=== PATIENT | female | born 1990 | race Caucasian/White ===

== ENCOUNTER 2017-02-07 11:45 | Emergency (ER) | payer OTHER ==
[2017-02-07 11:53] VITALS: BP 111/76; PULSE 65; TEMP 98.1; BMI 20.4
--- NOTE | 2017-02-07 12:43 | PDOC ---
History of Present Illness - General Chief Complaint: Bleeding from Anus Stated Complaint: URINARY RETENTION Time Seen by Provider: 02/07/17 12:05 History Source: Patient Exam Limitations: No Limitations - History of Present Illness Initial Comments: 02/07/17 12:37 27-year-old female with history of hemorrhoids including removal of hemorrhoids in 2008 here at [facility] presents with recurrence of hemorrhoids causing her to have rectal bleeding upon defecation and constipation. Patient denies abdominal pain, fever, chills, dizziness, weakness, history of anemia, continual rectal bleeding, nausea, or difficulty urinating. Timing/Duration: constant, getting worse Severity: mild Associated Symptoms: reports: denies symptoms Past History - Past Medical History Allergies/Adverse Reactions: Allergies Allergy/AdvReac Type Severity Reaction Status Date / Time No Known Allergies Allergy Verified 02/07/17 11:50 Home Medications: Ambulatory Orders NK [No Known Home Medication] 02/07/17 GI Disorders: Yes (HEMORRHOIDS.) Other medical history: denies. - Reproductive History LMP Normal: Yes Is Patient Now?: No - Psycho/Social/Smoking Cessation Hx Anxiety: No Suicidal Ideation: No Smoking History: Never smoked Hx Alcohol Use: No Drug/Substance Use Hx: No Substance Use Type: None Patient Lives Alone: No Review of Systems - Review of Systems Able to Perform ROS?: Yes Constitutional: No: Symptoms Reported HEENTM: No: Symptoms Reported Respiratory: No: Symptoms reported Cardiac (ROS): No: Symptoms Reported ABD/GI: Yes: Constipated, Rectal Bleeding. No: Blood Streaked Bowels : No: Symptoms Reported Musculoskeletal: No: Symptoms Reported Integumentary: No: Symptoms Reported Neurological: No: Symptoms reported Hematologic/Lymphatic: No: Symptoms Reported *Physical Exam - Vital Signs Last Vital Signs Temp Pulse Resp BP Pulse Ox 98.1 F 65 18 111/76 100 02/07/17 11:49 02/07/17 11:49 02/07/17 11:49 02/07/17 11:49 02/07/17 11:49 - Physical Exam General Appearance: Yes: Nourished, Appropriately Dressed. No: Apparent Distress HEENT: negative: Pale Conjunctivae Cardiovascular: positive: Regular Rate. negative: Tachycardia Gastrointestinal/Abdominal: positive: Soft. negative: Tenderness Rectal Exam: positive: normal rectal tone, hemorrhoids (nonthrombosed external at 3:00. ), other (palpable semi-firm tender mass to the distal aspect of rectal vault). negative: decreased tone Integumentary: positive: Normal Color, Warm, Moist Neurologic: positive: Motor Strength 5/5 (ambulatory) Medical Decision Making - Medical Decision Making 02/07/17 12:44 Patient with constipation, hemorrhoids, and rectal bleeding upon defecation. Patient with history of hemorrhoidectomy and 2009 and unable to recall the physician requesting a new surgical referral. Patient on exam had 1 small 1 cm nonthrombosed hemorrhoid at 3:00 and a small semi-firm tender mass to the distal aspect of rectal vault. Likely a hemorrhoid. Patient will be ordered for Dulcolax to soften the stool, suppository, and topical. Patient also be given a surgical referral *DC/Admit/Observation/Transfer Diagnosis at time of Disposition: Hemorrhoids Qualifiers: Hemorrhoid type: first degree Qualified Code(s): K64.0 - First degree hemorrhoids - Discharge Dispostion Disposition: HOME Condition at time of disposition: Good - Referrals Referrals: Fernandez Veloz MD [Staff Physician] - - Patient Instructions Printed Discharge Instructions: DI for Hemorrhoids Additional Instructions: Please use topical, suppository, and laxative as prescribed. Please also follow up with referred surgeon.
== END 2017-02-07 12:54 | disposition home or self-care (01) ==
LOC: JERFT 11:45
DX: K64.0 First degree hemorrhoids (principal)
CPT/HCPCS: 99281-25

== ENCOUNTER 2021-03-20 14:40 | Emergency (ER) | payer OTHER ==
[2021-03-20 15:14] VITALS: BP 119/77; PULSE 71; TEMP 97.9; BMI 19.3
[2021-03-20] MEDS ORDERED: ACETAMINOPHEN 500 MG TABLET (FP) PO ONE (15:36)
[2021-03-20] MEDS ORDERED: KETOROLAC TROMETHAMINE 30 MG/1 ML VIAL IM ONE (15:36)
[2021-03-20] MEDS ORDERED: ACETAMINOPHEN 500 MG TABLET (FP) ONE (15:37)
[2021-03-20] MEDS ORDERED: KETOROLAC TROMETHAMINE 30 MG/1 ML VIAL ONE (15:37)
== END 2021-03-20 16:05 | disposition home or self-care (01) ==
LOC: JERFT 14:40
PROC: 3E0233Z Introduction of Anti-inflammatory into Muscle, Percutaneous Approach (ICD-10-PCS; principal; 2021-03-20)
DX: G56.01 Carpal tunnel syndrome, right upper limb (principal)
CPT/HCPCS: 99284-25